=== PATIENT | female | born 1990 | race Two or more races ===

== ENCOUNTER 2024-05-27 21:41 | Emergency (ER) | payer OTHER ==
[~2024-05-27] VITALS: Ht 175.3 cm; Wt 143.0 kg
[2024-05-27 21:50] VITALS: BP 144/89; PULSE 66; RESP 18; O2SAT 100
--- NOTE | 2024-05-27 21:58 | ED.PDOC ---
Eye-HPI HPI Comments 33F present to the ER w/ no prior Hx associated to the c/c of Eye Pain. Pt reports on having the right red eye, swelling and watery coming from the eye. Pt notes the symptoms started 5 days ago w/ 2-3 days being just red and gradually worsening. Denies chills, fever, N/V/D, SOB, CP or other associated symptom's, modifiers, or recent injuries or sick contact at this time. Patient states her vision is blurred. Time Seen by MD: 21:50 Reviewed Notes: Nurses Notes, Medications, Allergies Allergies: Coded Allergies: NO KNOWN ALLERGIES (Unverified , 05/27/24) Information Source: Patient Mode of Arrival: Ambulatory Timing: Days Duration: Since onset, Days Prehospital treatment: None Quality: Pain, Red, Visual Loss Eye Location: Right Lids: Red, Swelling, Tender Anterior chamber: Normal Mouth: Normal ENT Ear Exam: Normal Nose: Normal Sinuses: Normal Oropharynx: Normal Onset: Spontaneous Throat Exposed to: None History of: None Last Tetanus: Unknown Associated signs and symptoms: None Past Medical History PAST MEDICAL HISTORY: Denies Surgical History: Denies all surgeries ACADEMIC PHYSICIAN History: No Pertinent ACADEMIC PHYSICIAN History Family History Family History: Reviewed,noncontributory to illness, Unknown Social History Smoker: Non-Smoker Alcohol: Denies ETOH Use Drugs: Denies Drug Use Lives In: Home Constitutional: denies: chills, diaphoresis, fatigue, fever, malaise, sweats, weakness, others EENTM: reports: blurred vision, eye pain, eye redness; denies: double vision, ear bleeding, ear discharge, ear drainage, ear pain, ear ringing, hearing loss, mouth pain, mouth swelling, nasal discharge, nose bleeding, nose congestion, nose pain, photophobia, tearing, throat pain, throat swelling, voice changes, others Respiratory: denies: cough, hemoptysis, orthopnea, SOB at rest, shortness of breath, SOB with excertion, stridor, wheezing, others Cardiovascular: denies: chest pain, dizzy spells, diaphoresis, Dyspnea on exertion, edema, irregular heart beat, left arm pain, lightheadedness, palpitations, PND, syncope, others Gastrointestinal: denies: abdomen distended, abdominal pain, blood streaked bowels, constipated, diarrhea, dysphagia, difficulty swallowing, hematemesis, melena, nausea, poor appetite, poor fluid intake, rectal bleeding, rectal pain, vomiting, others Genitourinary: denies: abnormal vagina bleeding, burning, dyspareunia, dysuria, flank pain, frequency, hematuria, incontinence, pain, , vagina discharge, urgency, others Neurological: denies: dizziness, fainting, headache, left sided numbness, left sided weakness, numbness, paresthesia, pre-existing deficit, right sided numbness, right sided weakness, seizure, speech problems, tingling, tremors, weakness, others Musculoskeletal: denies: back pain, gout, joint pain, joint swelling, muscle pain, muscle stiffness, neck pain, others Integumetry: denies: bruises, change in color, change in hair/nails, dryness, laceration, lesions, lumps, rash, wounds, others Allergic/Immunocompromised: denies: Difficulty Healing, Frequent Infections, Hives, Itching, others Hematologic/Lymphatic: denies: anemia, blood clots, easy bleeding, easy bruising, swollen glands, others Endocrine: denies: excessive hunger, excessive sweating, excessive thirst, excessive urination, flushing, intolerance to cold, intolerance to heat, unexplained weight gain, unexplained weight loss, others Psychiatric: denies: anxiety, bipolar disorder, depression, hopeless, panic disorder, schizophrenia, sleepless, suicidal, others All Other Systems: Reviewed and Negative Physical Exam General Appearance: Moderate Distress (Due to right eye pain concerns), Normal HEENT: Pharynx Normal, TMs Normal, Other ( patient displays significant scleral injection as well as swelling to the conjunctival tissue around the iris consistent with uveitis. Patient states vision is foggy.) Neck: Full Range of Motion, Non-Tender, Normal, Normal Inspection Respiratory: Chest Non-Tender, Lungs Clear, No Accessory Muscle Use, No Respiratory Distress, Normal Breath Sounds Cardiovascular: No Edema, No JVD, No Murmur, No Gallop, Normal Peripheral Pulses, Regular Rate/Rhythm Breast Exam: Deferred Gastrointestinal: No Organomegaly, Non Tender, No Pulsatile Mass, Normal Bowel Sounds, Soft Genitalia: Deferred Pelvic: Deferred Rectal: Deferred Extremities: No calf tenderness, Normal capillary refill, Normal inspection, Normal range of motion, Non-tender, No pedal edema Musculoskeletal : Apperance: Normal Neurologic: Alert, No Motor Deficits, Normal Affect, Normal Mood, No Sensory Deficits Cerebellar Function: Normal Reflexes: Normal Skin: Dry, Normal Color, Warm Lymphatic: No Adenopathy Was a procedure done? Was a procedure done?: No EENT DIFF Eye: Chalazion, Corneal Abrasion, Corneal Ulceration, Iritis/Uveitis X-Ray, Labs, Meds, VS Vital Signs Date Time Temp Pulse Resp B/P (MAP) Pulse Ox O2 Delivery O2 Flow Rate FiO2 05/27/24 21:50 98.1 66 18 144/89 (107) 100 X-Ray, Labs, Meds, VS Comment Fluorescein stain was utilized for a evaluation of the right eye. No keratitis noted. Spoke to Dr. Hollis at [facility] and discussed the patient's eye concerns. He advised atropine, Pred Forte and ophthalmology follow up tomorrow. Time of 1ST Reevaluation: : Reevaluation 1ST: Improved Consultation: PCP, Other ( Ophthalmology) Patient Education/Counseling: Diagnosis, Treatment, Prognosis Family Education/Counseling: Diagnosis, Treatment, No Family Present Departure 1 Departure Time of Disposition: Impression: Primary Impression: Uveitis Disposition: HOME / SELF CARE / HOMELESS Condition: Stable Additional Instructions: Advised patient utilize medication as directed and additionally, patient should follow up with Ophthalmology tomorrow for evaluation. Advised patient that due to the Thursday predicament, patient should follow up at a [facility] for an ophthalmology evaluation. e-Prescriptions Prednisolone Acetate (Ophth) (Pred Forte) 1 % Amira 1 % OP DAILY, #2.5 ML Prov: RAMON BAER PAC 05/28/24 Atropine Sulfate (Atropine Sulfate) 1 % Nabila 1 % OP BID, #2.5 ML Prov: RAMON BAER PAC 05/28/24 Discharged With: Self, Friend Critical Care Note Critical Care Time?: No Stability Stability form required: No Heart Score Heart Score: Heart Score Response (Comments) Value History N/A 0 EKG N/A 0 Age N/A 0 Risk Factors N/A 0 Troponin N/A 0 Total 0 I personally scribed for RAMON BAER PAC ([email or web address]) on 05/27/24 at 21:58. Electronically submitted by Pio Lopez ([email or web address]). RAMON BAER PAC May 27, 2024 21:58
[2024-05-27] MEDS: FLUORESCEIN SOD OPTH TEST STRIP ONE (21:59)
[2024-05-27] MEDS: FLUORESCEIN SOD OPTH TEST STRIP EACHEYE ONE (21:59)
[2024-05-28] MEDS ORDERED: ATRO1SOL21 OP (01:12)
[2024-05-28] MEDS ORDERED: PRED1SUS4 OP (01:12)
[2024-05-28] MEDS ORDERED: ATROPINE SULFATE 1% 2ml RIGHTEYE ONE (01:15)
[2024-05-28] MEDS ORDERED: DexAMETHasone SOD PHOS 10MG/1ML VIAL INJ IM ONE (01:15)
== END 2024-05-28 02:53 | disposition home or self-care (01) ==
LOC: ER 21:41
DX: H20.9 Unspecified iridocyclitis (principal)